=== PATIENT | female | born 1990 | race Caucasian/White ===

== ENCOUNTER 2018-08-16 11:30 | Outpatient (CLI) | payer MEDICAID ==
[2018-08-17 11:36] LABS: HEPATITIS B CORE AB TOTAL NON-REACTIVE (NON-REACTIVE)
== END 2018-08-16 11:31 | disposition home or self-care (01) ==
LOC: LAB.F 11:30
PROVIDERS: ATTEND Registered Nurse
DX: Z02.0 Encounter for examination for admission to educational institution (principal)
CPT/HCPCS: 36415; 86704; 86735; 86762; 86765; 86787

== ENCOUNTER 2018-08-26 16:30 | Outpatient (CLI) | payer SELFPAY | END 2018-08-26 16:31 | disposition home or self-care (01) | LOC: LAB 16:30 | PROVIDERS: ATTEND Registered Nurse | DX: Z02.0 Encounter for examination for admission to educational institution (principal) | CPT/HCPCS: 86317 ==